=== PATIENT | female | born 1935 | race Caucasian/White ===

== ENCOUNTER 2023-05-06 18:31 | Emergency (ER) | payer MEDICARE, MEDICAID ==
[~2023-05-06] VITALS: Ht 167.6 cm; Wt 94.8 kg
[2023-05-06 18:42] VITALS: BP 136/70; PULSE 74; RESP 18; TEMP 97.9; O2SAT 96
--- NOTE | 2023-05-06 19:15 | NUR ---
Pt report given to GREG ALONSO. Transfer of care at this time.
[2023-05-06 19:45] VITALS: TEMP 97.9
--- NOTE | 2023-05-06 19:45 | NUR ---
PATIENT'S BP AT 170/68 [facility] THEN RECHECKED AT 172/[address] CANALES MADE AWARE. NO NEW ORDERS AT THE MOMENT.
[2023-05-06 20:03] LABS: BASOPHILS # (AUTO) 0.1 K/uL (0.00-0.22); EOSINOPHILS # (AUTO) 0.2 K/uL (0-0.4); EOSINOPHILS % (AUTO) 1.5 % (0.0-4.0); HEMATOCRIT 28.8 % (36-48); HEMOGLOBIN 9.3 g/dL (12.0-16.0); LYMPHOCYTES # (AUTO) 2.5 K/uL (2.5-16.5); LYMPHOCYTES % (AUTO) 21.4 % (20.5-51.1); MEAN CORPUSCULAR HEMOGLOBIN 24 pg (27-31); MEAN CORPUSCULAR HGB CONC 32 g/dL (33-37); MEAN CORPUSCULAR VOLUME 72.8 fL (80-94); MONOCYTES # (AUTO) 1.1 K/uL (0.8-1.0); MONOCYTES % (AUTO) 9.3 % (1.7-9.3); NEUTROPHILS # (AUTO) 7.9 K/uL (1.8-7.7); NEUTROPHILS % (AUTO) 66.8 % (42.2-75.2); PLATELET COUNT (AUTO) 280 K/uL (140-450); RED BLOOD CELL COUNT(AUTO) 3.96 MIL/uL (4.20-5.40); RED CELL DISTRIBUTION WIDTH 19.2 % (11.6-13.7); WHITE BLOOD COUNT (AUTO) 11.8 K/uL (4.8-10.8)
[2023-05-06 20:27] LABS: ALBUMIN 3.5 g/dL (3.4-5.0); ASPARTATE AMINOTRANSFERASE 18 U/L (15-37); CARBON DIOXIDE 27.3 mmol/L (21-32); CHLORIDE 101 mmol/L (98-107); CREATININE 0.9 mg/dL (0.6-1.3); GLUCOSE 106 mg/dL (74-106); POTASSIUM 4.3 mmol/L (3.5-5.1); SODIUM SERUM 140 mmol/L (136-145); TOTAL BILIRUBIN 0.4 mg/dL (0.0-1.0); UREA NITROGEN, BLOOD 17 mg/dL (7-18)
[2023-05-06 21:30] VITALS: BP 154/55; PULSE 84; RESP 16; O2SAT 94
--- NOTE | 2023-05-06 21:30 | NUR ---
Note undfernie in EDM - 05/06/23 at 2341 by MED Patient discharged. Written and verbal after care instructions given and explained. Patient/family member alert, oriented and verbalized understanding of instructions. Wheel Chair Assisted with to car. All questions addressed prior to discharge. ID band removed. Patient/family member advised to follow up with PMD. Rx of Lasix, Nystatin-Triamcinolone cream, K-Dur given. Patient/family member educated on indication of medication including possible reaction and side effects. Opportunity to ask questions provided and answered.
[2023-05-06] MEDS ORDERED: FURO-572 PO (21:33)
[2023-05-06] MEDS ORDERED: POTA10TA70 PO (21:33)
[2023-05-06] MEDS ORDERED: NYST15CR7 TP (21:33)
--- NOTE | 2023-05-06 21:45 | NUR ---
Shaila altman in EDM - 05/06/23 at 2343 by MED PATIENT'S BP AT 170/68 [facility] THEN RECHECKED AT 172/[address] CANALES MADE AWARE. NO NEW ORDERS AT THE MOMENT.
--- NOTE | 2023-05-06 22:30 | NUR ---
Note undfernie in EDM - 05/06/23 at 2343 by MED Patient discharged. Written and verbal after care instructions given and explained. Patient/family member alert, oriented and verbalized understanding of instructions. Wheel Chair Assisted with to car. All questions addressed prior to discharge. ID band removed. Patient/family member advised to follow up with PMD. Rx of Lasix, Nystatin-Triamcinolone cream, K-Dur given. Patient/family member educated on indication of medication including possible reaction and side effects. Opportunity to ask questions provided and answered.
== END 2023-05-06 21:30 | disposition home or self-care (01) ==
LOC: MED 18:31
DX: I11.0 Hypertensive heart disease with heart failure (principal); I50.9 Heart failure, unspecified; E11.9 Type 2 diabetes mellitus without complications; K21.9 Gastro-esophageal reflux disease without esophagitis; Z79.899 Other long term (current) drug therapy
CPT/HCPCS: 36415; 71045; 80053; 83880; 84484; 85025; 93005; 93970; 99285; Q0092